=== PATIENT | female | born 1955 | race American Indian/Alaskan Native ===

== ENCOUNTER 2016-06-27 15:58 | Emergency (ER) | payer MEDICAID, OTHER ==
[2016-06-27 16:06] VITALS: TEMP 97.9
--- NOTE | 2016-06-27 16:26 | C.PDOC ---
History Of Present Illness 60 yo female come in for evaluation of Right lower leg gradually worsen " for past few months" . Pt admits, pain is localized over lateral aspect of Right lower leg, worse with prolong standing. Pt admits, similar sx in past, when was seen in ER and xray and Doppler US performed with normal results. Pt admits, " stand and walk a lot at work". Otherwise, pt denies known direct trauma or injury, fever, chills, headache, dizziness, CP, SOB, cough, dyspnea, abd. pain, N/V, back pain, UTI sx, saddle anesthesia, denies weakness, swelling, sensory or vascular deficits to B/L LEs. Ambulate to ED, request work form to be completed for job clearance. Time Seen by Provider: 06/27/16 16:08 Chief Complaint (Nursing): Lower Extremity Problem/Injury History Per: Patient History/Exam Limitations: no limitations Onset/Duration Of Symptoms: Other ("Past few months") Current Symptoms Are (Timing): Still Present Severity: Mild Recent travel outside of the [place]: No Past Medical History Reviewed: Historical Data, Nursing Documentation, Vital Signs Vital Signs: Last Vital Signs Temp 97.9 F 06/27/16 16:03 Pulse 78 06/27/16 16:52 Resp 18 06/27/16 16:52 BP 124/75 06/27/16 16:52 Pulse Ox 98 06/27/16 16:52 - Medical History PMH: Asthma, HTN Surgical History: No Surg Hx, Cholecystectomy Family History: States: No Known Family Hx - Social History Hx Alcohol Use: Yes Hx Substance Use: No - Immunization History Hx Tetanus Toxoid Vaccination: No Hx Influenza Vaccination: No Hx Pneumococcal Vaccination: Yes Review Of Systems Except As Marked, All Systems Reviewed And Found Negative. Constitutional: Negative for: Fever, Chills Cardiovascular: Negative for: Chest Pain Respiratory: Negative for: Shortness of Breath Gastrointestinal: Negative for: Nausea, Vomiting, Abdominal Pain, Diarrhea Musculoskeletal: Positive for: Leg Pain (Right lower leg pain). Negative for: Back Pain Neurological: Negative for: Weakness, Numbness, Headache, Dizziness Physical Exam - Physical Exam Appears: Well, Non-toxic, No Acute Distress Skin: Normal Color, Warm, Dry, No Rash, No Ecchymosis Eye(s): bilateral: PERRL Oral Mucosa: Moist Throat: Normal Neck: Trachea Midline, Supple Gastrointestinal/Abdominal: Soft, No Tenderness Back: No CVA Tenderness Extremity: Normal ROM, Tenderness (mild tenderness along anterior/lateral aspect Right lower leg ( along fibula). NO skin changes, no palpable deformity, no calf tenderness. no edema. FAROM, no neurovascular deficits.), No Calf Tenderness (B/L LEs.), Capillary Refill (less than 2sec), No Deformity, No Swelling Neurological/Psych: Oriented x3, Normal Speech, Normal Motor, Normal Sensation, Normal Reflexes ED Course And Treatment O2 Sat by Pulse Oximetry: 99 Pulse Ox Interpretation: Normal Progress Note: On re-evaluation, pt is afebrile, hemodynamicaly stable. NOn- toxic. AMbulatory in ED with stable gait. PulseOx 99% RA. RLE: tenderness along anterior aspect lower leg, likely exam c/w muscular strain, leg strain/ cramping. FAROM, no neurovascular deficits, (-) calf tenderness. neurologicaly intact. Pt advised return to ED tomorrow for Doppler, ref. to f/u with PMD, Ortho in 1-2 days for re-eval. return if any new changes. Disposition Counseled Patient/Family Regarding: Diagnosis, Need For Followup, Rx Given - Disposition Referrals: [facility] [Outside] Disposition: HOME/ ROUTINE Disposition Time: 16:22 Condition: STABLE Additional Instructions: Follow up with PMD in 2-3 days for re-evaluation. Return to ED if any worsening or new changes. Prescriptions: Methocarbamol [Robaxin] 500 mg PO TID #14 tab traMADol [Ultram] 50 mg PO TID #7 tab Instructions: Leg Cramps (ED) - Clinical Impression Clinical Impression: Leg cramp - Scribe Statement The provider has reviewed the documentation as recorded by the Joel Coombs All medical record entries made by the Joel were at my direction and personally dictated by me. I have reviewed the chart and agree that the record accurately reflects my personal performance of the history, physical exam, medical decision making, and the department course for this patient. I have also personally directed, reviewed, and agree with the discharge instructions and disposition.
[2016-06-27 16:52] VITALS: BP 124/75; PULSE 78; RESP 18
[2016-06-29 19:46] VITALS: O2SAT 99
== END 2016-06-27 16:53 | disposition home or self-care (01) ==
LOC: C.ER 15:58
DX: R25.2 Cramp and spasm (principal)